=== PATIENT | female | born 1990 ===

== ENCOUNTER 2017-12-23 21:01 | Emergency (ER) | payer MEDICAID ==
[2017-12-23 21:38] VITALS: BP 132/72; PULSE 60; RESP 20; TEMP 98.7; O2SAT 98
--- NOTE | 2017-12-23 22:29 | C.PDOC ---
History Of Present Illness 27 year old female presents to the ER with a complaint of headache, sore throat , ear pain, and congestion for the past 3 days, associated with subjective fever. Denies recent travel or sick contact. Time Seen by Provider: 12/23/17 21:48 Chief Complaint (Nursing): Flu-like Symptoms History Per: Patient History/Exam Limitations: no limitations Onset/Duration Of Symptoms: Days Current Symptoms Are (Timing): Still Present Location Of Pain: Throat, Headache Sick Contacts (Context): None Associated Symptoms: Fever (Subjective), Sore Throat, Nasal Congestion, Other ( Headache) Ear Symptoms: Bilateral: Ear Pain Recent travel outside of the [place]: No Past Medical History Reviewed: Historical Data, Nursing Documentation, Vital Signs Vital Signs: Last Vital Signs Temp 98.7 F 12/23/17 21:34 Pulse 60 12/23/17 21:34 Resp 20 12/23/17 21:34 BP 132/72 12/23/17 21:34 Pulse Ox 98 12/23/17 22:29 - Medical History PMH: Asthma Family History: States: Unknown Family Hx - Social History Hx Alcohol Use: No Hx Substance Use: No - Immunization History Hx Tetanus Toxoid Vaccination: No Hx Influenza Vaccination: No Hx Pneumococcal Vaccination: No Review Of Systems Constitutional: Positive for: Fever (Subjective). Negative for: Chills ENT: Positive for: Ear Pain, Nose Congestion, Throat Pain. Negative for: Ear Discharge Neurological: Positive for: Headache Physical Exam - Physical Exam Appears: Non-toxic, No Acute Distress Skin: Normal Color, Warm, Dry Head: Atraumatic, Normacephalic Eye(s): bilateral: Normal Inspection, PERRL, EOMI Ear(s): Bilateral: Normal Nose: Other (Congested) Oral Mucosa: Moist Throat: Normal, No Erythema, No Exudate Neck: Normal, Supple Chest: Symmetrical, No Tenderness Cardiovascular: Rhythm Regular Respiratory: Normal Breath Sounds, No Rales, No Rhonchi, No Wheezing Neurological/Psych: Oriented x3, Normal Speech ED Course And Treatment O2 Sat by Pulse Oximetry: 98 (room air) Pulse Ox Interpretation: Normal Progress Note: Motrin administered. Patient reports improvement of pain, will discharge home with Rx and instructions to follow up with PMD or return if symptoms worsen. Disposition - Disposition Referrals: Non [facility] Provider, [Primary Care Provider] - Disposition: HOME/ ROUTINE Disposition Time: 22:27 Condition: STABLE Additional Instructions: Follow up with PMD within 1-2 days. Return to ED if feel worse. 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 - Scribe Statement The provider has reviewed the documentation as recorded by the Scribe Juanjo Novak All medical record entries made by the Howardibtejinder were at my direction and personally dictated by me. I have reviewed the chart and agree that the record accurately reflects my personal performance of the history, physical exam, medical decision making, and the department course for this patient. I have also personally directed, reviewed, and agree with the discharge instructions and disposition.
== END 2017-12-23 23:06 | disposition home or self-care (01) ==
LOC: C.ER 21:01 → SUPCPDRO 21:01 → C.ER 23:06
DX: J06.9 Acute upper respiratory infection, unspecified (principal)